=== PATIENT | female | born 1980 | race Caucasian/White ===

== ENCOUNTER 2017-04-13 16:11 | Emergency (ER) | payer MEDICARE, OTHER ==
[~2017-04-13] VITALS: Ht 157.5 cm; Wt 54.4 kg
[~2017-04-13 16:11] MED LIST: ACETAMINOPHEN-1 EAC1 PO; ADDERALL 20 MG20 MG PO; ADVIL200 M1 PO; AMOXICILLIN500 MG PO; BACLOFEN10 MG PO; BACTROBAN22 GM TOP; BUSPIRONE HCL7.5 MG PO; CELEXA20 MG PO; CELEXA40 MG PO; CHLORHEXIDINE473 ML PO; CITALOPRAM HBR20 MG PO; CITALOPRAM HBR40 MG PO; CYMBALTA30 MG PO; DEPAKOTE250 MG PO; DEPAKOTE500 MG PO; DOXYCYCLINE HY100 MG PO; FLAGYL500 MG PO; GLUCOPHAGE500 MG PO; HYDROCODON-ACE1 EAC3 PO; HYDROCORT-PRAMO30 GM PR; KEFLEX500 MG PO; KLONOPIN1 MG PO; MACROBID 100 M100 MG PO; MELOXICAM15 MG PO; NEURONTIN100 MG PO; OLANZAPINE ODT5 MG PO; OLANZAPINE10 MG PO; OLANZAPINE15 MG PO; PROVENTIL HFA6.7 GM INH; TRAMADOL HCL50 MG PO; ZYPREXA10 MG PO
== END 2017-04-13 17:49 | disposition home or self-care (01) ==
LOC: ED 16:11
DX: M25.562 Pain in left knee (principal); F17.200 Nicotine dependence, unspecified, uncomplicated; Z98.51 Tubal ligation status; Z98.84 Bariatric surgery status; Z88.2 Allergy status to sulfonamides; Z88.8 Allergy status to other drugs, medicaments and biological substances
CPT/HCPCS: 99282

== ENCOUNTER 2017-06-27 22:07 | Emergency (ER) | payer MEDICARE, OTHER ==
[~2017-06-27] VITALS: Ht 157.5 cm; Wt 68.0 kg
== END 2017-06-27 23:55 | disposition home or self-care (01) ==
LOC: ED 22:07
DX: N91.2 Amenorrhea, unspecified (principal); R10.2 Pelvic and perineal pain; E66.9 Obesity, unspecified; F31.9 Bipolar disorder, unspecified; F17.200 Nicotine dependence, unspecified, uncomplicated; Z88.2 Allergy status to sulfonamides; Z88.8 Allergy status to other drugs, medicaments and biological substances; Z79.899 Other long term (current) drug therapy
CPT/HCPCS: 81001; 84703; 99283

== ENCOUNTER 2018-12-28 23:20 | Emergency (ER) | payer MEDICARE, OTHER ==
[~2018-12-28] VITALS: Ht 157.5 cm; Wt 68.0 kg
--- OUTSIDE RECORDS SUMMARY | 2018-12-28 23:24 | XMS ---
PreManage Notification: JUNAID DARBY Security [facility] Events No recent Security Events currently on file CRITERIA MET - [facility] There are no care providers on record at this time. Yaneth has no Care Guidelines for this patient. [place] VISIT COUNT (12 MO.) 1 [facility] TOTAL 1 NOTE: Visits indicate total known visits. ED/C VISIT TRACKING (12 MO.) 12/28/2018 23:21 [facility] [place] TYPE: Emergency COMPLAINT: - MULTIPLE COMPLAINTS INPATIENT VISIT TRACKING (12 MO.) No inpatient visits to display in this time frame [email or web address]
[2018-12-28] MEDS ORDERED: DEXTROAMP-AMPHE30 MG PO (23:35)
[2018-12-29] MEDS ORDERED: DOXYCYCLINE HY100 MG PO (00:02)
== END 2018-12-29 00:11 | disposition home or self-care (01) ==
LOC: ED 23:20
DX: H60.92 Unspecified otitis externa, left ear (principal); L08.9 Local infection of the skin and subcutaneous tissue, unspecified; F17.200 Nicotine dependence, unspecified, uncomplicated; F31.9 Bipolar disorder, unspecified; Z88.2 Allergy status to sulfonamides; Z88.5 Allergy status to narcotic agent; Z79.899 Other long term (current) drug therapy
CPT/HCPCS: 99282

== ENCOUNTER 2019-03-12 20:27 | Emergency (ER) | payer MEDICARE, OTHER ==
[~2019-03-12] VITALS: Ht 157.5 cm; Wt 68.0 kg
[~2019-03-12 20:27] MED LIST changes: +DEXTROAMP-AMPHE30 MG PO
--- OUTSIDE RECORDS SUMMARY | 2019-03-12 20:30 | XMS ---
PreManage Notification: JUNAID DARBY Security Traveling Nurse Events No recent Security Events currently on file CRITERIA MET - Group Notification - [facility] - Has Care Guidelines - PDMP CARE PROVIDERS There are no care providers on record at this time. Yaneth has no Care Guidelines for this patient. Care History Medical/Surgical 12/30/2018 [facility] Care Recommendation: - Patient DOES NOT have a PCP. - Please refer patient to [facility]: [address] [place] [address], [place] [address] E.D. VISIT COUNT (12 MO.) 2 [facility]. TOTAL 2 NOTE: Visits indicate total known visits. ED/UCC VISIT TRACKING (12 MO.) 03/12/2019 20:28 [facility] [place] TYPE: Emergency COMPLAINT: - SKIN PROBLEM 12/28/2018 23:21 [facility] [place] TYPE: Emergency COMPLAINT: - MULTIPLE COMPLAINTS DIAGNOSES: - Local infection of the skin and subcutaneous tissue, unsp - Disorder of the skin and subcutaneous tissue, unspecified - Bipolar disorder, unspecified - Other care home (current) drug therapy - Nicotine dependence, unspecified, uncomplicated - Allergy status to sulfonamides status - Allergy status to narcotic agent status - Unspecified otitis externa, left ear INPATIENT VISIT TRACKING (12 MO.) No inpatient visits to display in this time frame [email or web address]
[2019-03-12] MEDS ORDERED: ADDERALL 30 MG30 MG PO (20:44)
[2019-03-12] MEDS ORDERED: KEFLEX500 MG PO (20:52)
== END 2019-03-12 20:58 | disposition home or self-care (01) ==
LOC: ED 20:27
DX: L01.00 Impetigo, unspecified (principal); F31.9 Bipolar disorder, unspecified; F17.200 Nicotine dependence, unspecified, uncomplicated; Z88.2 Allergy status to sulfonamides; Z88.8 Allergy status to other drugs, medicaments and biological substances; Z79.899 Other long term (current) drug therapy
CPT/HCPCS: 99282